=== PATIENT | female | born 1985 | race African-American/Black ===

== ENCOUNTER 2018-07-28 08:08 | Emergency (ER) | payer OTHER ==
--- NOTE | 2018-07-28 09:08 | RAD ---
CHEST 1 VIEW: Date: 07/28/18 Time: 0844 hours HISTORY: Cough, congestion. FINDINGS: The heart size is normal. The lungs are well expanded without focal areas of consolidation, pneumotho races, or pleural effusions. IMPRESSION: No radiographic evidence of acute cardiopulmonary process. POS: OFF
== END 2018-07-28 08:58 | disposition home or self-care (01) ==
LOC: ERS 08:08
DX: J06.9 Acute upper respiratory infection, unspecified (principal)
CPT/HCPCS: 71045

== ENCOUNTER 2019-05-28 12:55 | Emergency (ER) | payer OTHER ==
[2019-05-28 14:28] LABS: #Basophils 0.1 thou/uL (0.0-0.2); #Eosinphils 0.2 thou/uL (0.0-0.7); #Lymphocytes 1.6 thou/uL (1.20-3.40); #Monocytes 0.5 thou/uL (0.11-0.59); #Neutrophils 3.6 thou/uL (1.40-6.50); %Basophils 0.9 % (0.0-1.0); %Monocytes 8.1 % (0.0-10.0); %Neutrophils 60.9 % (42.0-75.0); Hemoglobin 10.6 g/dL (12.0-16.0); Mean Corpuscular HGB CONC 31.7 g/dL (32.0-36.0); Mean Corpuscular Hemoglobin 25.2 pg (27.0-31.0); Mean Corpuscular Volume 79.7 fL (78.0-98.0); Mean Platelet Volume 9.5 fL (7.4-10.4); Platelet Count 212 thou/uL (130-400); RBC Distribution Width 14.6 % (11.5-14.5); Red Blood Cell (RBC) Count 4.21 mill/uL (4.20-5.40); White Blood Cell (WBC) Count 5.9 thou/uL (4.8-10.8)
[2019-05-28 14:48] LABS: Anion Gap 12 mmol/L (10-20); BUN (Urea Nitrogen) 8 mg/dL (7.0-18.7); Calc. Creatinine Clearance 0 mL/min (70-130); Calcium 8.6 mg/dL (7.8-10.44); Carbon Dioxide 25 mmol/L (22-29); Chloride 106 mmol/L (98-107); Estimated GFR-MDRD Greater than 90; Glucose 104 mg/dL (70-105); Potassium 3.5 mmol/L (3.5-5.1); Sodium 139 mmol/L (136-145)
== END 2019-05-28 16:48 | disposition home or self-care (01) ==
LOC: ERS 12:55
DX: R00.2 Palpitations (principal)
CPT/HCPCS: 80048; 84443; 85025; 93005

== ENCOUNTER 2019-07-01 12:31 | Emergency (ER) | payer OTHER ==
[2019-07-01] MEDS ORDERED: Ibuprofen 200 MG TAB ONE (13:06)
== END 2019-07-01 13:51 | disposition home or self-care (01) ==
LOC: ERS 12:31
DX: B34.9 Viral infection, unspecified (principal)
CPT/HCPCS: 87081; 87430; 87804; 99283

== ENCOUNTER 2020-04-26 23:01 | Emergency (ER) | payer OTHER, SELFPAY ==
[2020-04-26] MEDS ORDERED: Ketorolac Tromethamine 30 MG/ML VIAL ONE (23:39)
[2020-04-26] MEDS ORDERED: diphenhydrAMINE 50 MG/ML VIAL ONE (23:39)
[2020-04-26] MEDS ORDERED: Metoclopramide 10 MG/10 ML UDCUP ONE (23:39)
[2020-04-26] MEDS ORDERED: Metoclopramide HCl 10 MG/2 ML VIAL ONE (23:40)
== END 2020-04-27 00:59 | disposition home or self-care (01) ==
LOC: ERS 23:01
DX: R51 Headache (principal); F41.9 Anxiety disorder, unspecified; F17.210 Nicotine dependence, cigarettes, uncomplicated
CPT/HCPCS: 96374; 96375; J1200; J1885; J2765

== ENCOUNTER 2020-10-25 20:53 | Emergency (ER) | payer BC, SELFPAY ==
[2020-10-25] MEDS ORDERED: Morphine 4 MG/ML VIAL ONE (21:55)
[2020-10-25] MEDS ORDERED: Lidocaine 1% (PF) 30 ML VIAL ONE (21:56)
[2020-10-25] MEDS ORDERED: Bupivacaine 0.5% 10 ML VIAL ONE (21:56)
== END 2020-10-25 23:10 | disposition home or self-care (01) ==
LOC: ERS 20:53
DX: K04.7 Periapical abscess without sinus (principal); K02.9 Dental caries, unspecified; F17.210 Nicotine dependence, cigarettes, uncomplicated
CPT/HCPCS: 41800; 96372; J2001; J2270; J3490